=== PATIENT | male | born 1960 | race Caucasian/White ===

== ENCOUNTER 2018-08-08 00:15 | Inpatient (IN) | payer OTHER ==
[2018-08-08] VITALS (7 sets, daily range): BP systolic 99–150; BP diastolic 61–95
[~2018-08-08] VITALS: Ht 180.3 cm; Wt 88.0 kg
[2018-08-08] MEDS ORDERED: METFORMIN HCL500 MG PO (00:23)
[2018-08-08] MEDS ORDERED: ONGLYZA2.5 MG PO (00:24)
[2018-08-08] MEDS ORDERED: LIPITOR 10 MG10 M1 PO (00:25)
[2018-08-08 00:41] LABS: ABSOLUTE BASOPHILS 0.1 thou/uL (0.0-0.2); ABSOLUTE EOSINOPHILS 0.3 thou/uL (0.0-0.7); ABSOLUTE MONOCYTES 0.5 thou/uL (0.0-1.2); ABSOLUTE NEUTROPHILS 2.3 thou/uL (1.6-8.1); BASOPHILS 1.2 %; EOSINOPHILS 5.8 %; HEMATOCRIT 41.9 % (42.0-52.0); HEMOGLOBIN 13.8 gm/dL (14.0-18.0); LYMPHOCYTES 38.7 %; MCH 27.3 pg (26.0-34.0); MCHC 32.8 g/dL (28.0-37.0); MCV 83.1 fL (80.0-100.0); MPV 8.3 fl. (7.2-11.1); NUCLEATED RBCS 0 /100WBC; PLATELET COUNT* 183 thou/uL (150-400); POLYS 44.3 %; RBC 5.04 mil/uL (4.50-6.00); RDW-CV 16.1 % (10.5-14.5); WBC 5.2 thou/uL (4.0-11.0)
[2018-08-08 00:45] LABS: ANION GAP 5 mmol/L (7-16); BUN 16 mg/dL (7-18); CALCIUM 9.1 mg/dL (8.5-10.1); CHLORIDE 102 mmol/L (98-107); CO2 30 mmol/L (21-32); CREATININE 1.1 mg/dL (0.6-1.3); GLUCOSE 206 mg/dL (70-99); SODIUM 137 mmol/L (136-145)
[2018-08-08 00:52] LABS: APTT 25.6 Seconds (25.0-31.3); INR 0.9; PROTIME 9.7 Seconds (9.20-11.50)
[2018-08-08 00:56] LABS: ALBUMIN 3.6 g/dL (3.4-5.0); ALKALINE PHOSPHATASE 73 U/L (46-116); NT-PRO BRAIN NAT PEPTIDE 17 pg/mL (<300); SGOT 14 U/L (15-37); SGPT 32 U/L (30-65); TOTAL BILIRUBIN 0.2 mg/dL (<0.1-1.0); TROPONIN-I LEVEL <0.06 ng/mL (<0.06)
[2018-08-08] MEDS ORDERED: ASPIR 8181 MG PO (03:40)
--- NOTE | 2018-08-08 13:30 | 2DMMODE ---
[place] [address] 2 D/M-MODE ECHOCARDIOGRAM Name: RICH MON Room: [address] IN [facility]#: [id number] Admission: 08/08/18 Attend Phys: Stanley Soni Discharge: Date of : 60 Date of Service: 08/08/18 1330 Report #: [id number] THIS REPORT FOR: //name// APPROVED REPORT Study performed: 08/08/2018 11:01:14 EXAM: Comprehensive 2D, Doppler, and color-flow Echocardiogram Patient Location: In-Patient Room #: [facility] BSA: 2.08 HR: 77 bpm BP: 113/64 mmHg Other Information Study Quality: Good Indications Atrial Fibrillation 2D Dimensions IVSd: 11.40 (7-11mm) LVOT Diam: 20.51 (18-24mm) LVDd: 49.18 mm PWd: 7.86 (7-11mm) Ascending Ao: 28.73 (22-36mm) LVDs: 27.77 (25-40mm) Aortic Root: 29.12 mm Volumes Left Atrial Volume (Systole) LA ESV Index: 16.50 mL/m2 Aortic Valve AoV Peak Duc.: 1.11 m/s AO Peak Gr.: 4.95 mmHg LVOT Max P.26 mmHg AO Mean Gr.: 2.58 mmHg LVOT Mean P.07 mmHg LVOT Max V: 0.75 m/s AO V2 VTI: 18.75 cm LVOT Mean V: 0.47 m/s LOPEZ (VTI): 2.92 cm2 LVOT V1 VTI: 16.56 cm Mitral Valve E/A Ratio: 0.91 MV Decel. Time: 192.69 ms MV E Max Duc.: 0.71 m/s MV PHT: 55.88 [place] [address] 2 D/M-MODE ECHOCARDIOGRAM Name: RICH MON Room: [address] IN .R.#: [id number] Admission: 08/08/18 Attend Phys: Stanley Soni Discharge: Date of : 60 Date of Service: 08/08/18 1330 Report #: [id number] MVA (PHT): 3.94 cm2 TDI E/Lateral E': 5.92 E/Medial E': 6.45 Medial E' Duc.: 0.11 m/s Lateral E' Duc.: 0.12 m/s Pulmonary Valve PV Peak Duc.: 1.12 m/s PV Peak Gr.: 5.06 mmHg Tricuspid Valve RAP Estimate: 5.00 mmHg TR Peak Gr.: 13.87 mmHg RVSP: 18.87 mmHg PA Pressure: 18.87 mmHg Left Ventricle The left ventricle is normal size. There is normal LV segmental wall motion. There is normal left ventricular wall thickness. Left ventricular systolic function is normal. The left ventricular ejection fraction is within the normal range. LVEF is 55-60%. The left ventricular diastolic function is normal. Right Ventricle The right ventricle is normal size. The right ventricular systolic function is normal. Atria The left atrium size is normal. The right atrium size is normal. Aortic Valve The aortic valve is normal in structure. No aortic regurgitation is present. There is no aortic valvular stenosis. Mitral Valve The mitral valve is normal in structure. Trace mitral regurgitation. No evidence of mitral valve stenosis. Tricuspid Valve The tricuspid valve is normal in structure. Mild tricuspid regurgitation. Pulmonic Valve The pulmonary valve is normal in structure. There is no pulmonic [place] [address] 2 D/M-MODE ECHOCARDIOGRAM Name: RICH MON Room: [address] IN [facility]#: [id number] Admission: 08/08/18 Attend Phys: Stanley Soni Discharge: Date of : 60 Date of Service: 08/08/18 1330 Report #: [id number] Great Vessels The aortic root is normal in size. IVC is normal in size and collapses >50% with inspiration. Pericardium There is no pericardial effusion. <Conclusion> Left ventricular systolic function is normal. The left ventricular ejection fraction is within the normal range. <ELECTRONICALLY SIGNED> By: Alvin Rey MD, FACC 08/08/18 1330 29 29 Alvin Rey MD, FACC /INF
--- NOTE | 2018-08-08 16:22 | EKG ---
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 : 1960 Requested By: Isa Olivera Order Number: [id number] Tracey MD: Alvin Rey Measurements Intervals [place] Rate: 138 P: MA: QRS: 14 QRSD: 109 T: -38 QT: 334 QTc: 506 Interpretive Statements Atrial fibrillation Borderline low voltage, extremity leads Borderline prolonged QT interval Baseline wander in lead(s) V2 No previous ECG available for comparison Electronically Signed On 08-08-2018 16:22:12 PHYSICAL TRAINER by Alvin Rey [email or web address] <ELECTRONICALLY SIGNED> By: Alvin Rey MD, [facility] 08/08/18 1622 0024 0024 Alvin Rey MD, [facility] /EPI
[2018-08-08 23:10] LABS: GLYCOHEMOGLOBIN (HGB A1C) 8.8 % (4.8-5.6)
[2018-08-09] VITALS: BP 90/55
[2018-08-09 04:00] VITALS: BP 107/58
[2018-08-09 08:00] VITALS: BP 122/64
[2018-08-09] MEDS ORDERED: XARELTO20 MG PO (11:27)
[2018-08-09] MEDS ORDERED: CARVEDILOL3.125 MG PO (11:28)
[2018-08-09] MEDS ORDERED: FLECAINIDE ACET50 M1 PO (11:28)
[2018-08-09 12:00] VITALS: BP 131/79
[2018-08-09 12:44] VITALS: BP 122/64
--- NOTE | 2018-08-09 14:33 | EKG ---
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: : 1960 Requested By: Alvin Rey Order Number: [id number] Tracey MD: Tulio Douglas Measurements Intervals [place] Rate: 69 P: 39 HI: 139 QRS: 4 QRSD: 98 T: -12 QT: 421 QTc: 451 Interpretive Statements Sinus rhythm Borderline T abnormalities, inferior leads Compared to ECG 08/08/2018 00:24:28 T-wave abnormality now present Atrial fibrillation no longer present Electronically Signed On 08-09-2018 14:33:24 RADIOLOGICAL EQUIPMENT SPECIALIST by Tulio Douglas [email or web address] <ELECTRONICALLY SIGNED> By: Tulio Douglas MD, FACC 08/09/18 1433 0758 [id number] Tulio Douglas MD, [facility]IN [facility] /EPI
--- NOTE | 2018-08-09 15:03 | CON ---
[address] [address] CONSULTATION Name: RICH MON Room: [address] IN M.R.#: [id number] Admission: 08/08/18 Attend Phys: Ileana Lange Discharge: 08/09/18 Date of : 60 Report #: [id number] THIS REPORT FOR: //name// CC: JOVANY physician/PCP Stanley Soni DATE OF SERVICE: 08/08/2018 CARDIOLOGY CONSULTATION HISTORY OF PRESENT ILLNESS: The patient is a 57-year-old male who I was asked to see in the hospital today after he had an episode of atrial fibrillation. The patient has no previous history of heart disease. He stays fairly active. Last few days, he has been feeling well. He is currently getting ready to have his knee replaced in 2 weeks. He states he was doing well until last night. He was at home when he felt his heart beating irregular, felt some burning in his throat and felt a little lightheaded. He did notice some shortness of breath. His brought him by car to the Emergency Room last night. He was noted to be in atrial fibrillation. He was started on IV diltiazem. He converted to sinus rhythm. I was asked to see him for further evaluation and treatment. He denies any exertional dyspnea, dyspnea on exertion, edema or syncope. He has had no history of heart murmur. PAST MEDICAL HISTORY: He has had previous knee surgery. He has had wisdom tooth surgery. He has a history of diabetes and hyperlipidemia. MEDICATIONS: Include metformin, Lipitor and aspirin. ALLERGIES: HE HAS AN ALLERGY TO SULFA DRUGS. FAMILY HISTORY: Both his father and mother has had pacemaker. SOCIAL HISTORY: He is . He and his live here in [place]. He is originally from the [facility]. He is part [place] heritage. He receives his health care at [facility] in [place], [place]. 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 No smoking or alcohol abuse. REVIEW OF SYSTEMS: He has had no history of stroke, asthma, peptic ulcer disease, liver disease, kidney disease, cancer, psychiatric illness or chronic skin condition. PHYSICAL EXAMINATION: GENERAL: Revealed a middle-aged male, who appeared in no distress. VITAL SIGNS: He had a blood pressure 130/60. Pulse initially was 150; it is now 80 and irregular. Respirations nonlabored. [place] [address] CONSULTATION Name: RICH MON Room: [address]#: [id number] Admission: 08/08/18 Attend Phys: Ileana Lange Discharge: 08/09/18 Date of : 60 Report #: [id number] HEENT: He is anicteric. Conjunctivae pink. Mucous membranes moist. NECK: Neck veins do not appear distended. No carotid bruits. Neck supple. CHEST: Clear to auscultation. CARDIAC EXAMINATION: Regular rate and rhythm. ABDOMEN: Soft, nontender. EXTREMITIES: He had no edema. Posterior tibial pulses 2+ bilaterally. SKIN: Warm and dry. NEUROLOGICAL EXAMINATION: Nonfocal. PSYCHIATRIC EXAMINATION: Mood is appropriate. RADIOLOGICAL DATA: His ECG on admission showed atrial fibrillation with a rapid ventricular response rate, nonspecific ST and T-wave changes. Workup in the Emergency Room last night, he had a chest x-ray that showed normal heart size and clear lung wyman. LABORATORY DATA: Lab work last night, sodium 137, creatinine 1.1, glucose is 206. Liver function studies were normal. Troponin 0.06. White blood cell count 5.2, hemoglobin 13.8. IMPRESSION AND RECOMMENDATIONS: 1. Paroxysmal atrial fibrillation. I would check thyroid function studies and echocardiogram. The patient converted to sinus rhythm on diltiazem. At this time, I would recommend antiarrhythmic therapy. The patient has a RAND score of 1 and I would consider anticoagulation. 2. Diabetes. 3. Hyperlipidemia. The patient is on a statin drug. <ELECTRONICALLY SIGNED> By: Alvin Rey MD, FACC 08/09/18 1503 0905 [id number] Rey MD, FACC /nt
== END 2018-08-09 14:00 | disposition home or self-care (01) | DRG 309 ==
LOC: M.ERS 00:15 → M.2W 01:11 → M.TBA-ER 01:11 → M.2W 03:04
PROVIDERS: Personal Emergency Response Attendant; ADMIT Internal Medicine
DX: I48.0 Paroxysmal atrial fibrillation (principal); D68.69 Other thrombophilia; E11.9 Type 2 diabetes mellitus without complications; E78.5 Hyperlipidemia, unspecified; M19.90 Unspecified osteoarthritis, unspecified site; Z96.652 Presence of left artificial knee joint; Z79.01 Long term (current) use of anticoagulants; Z88.2 Allergy status to sulfonamides; Z79.82 Long term (current) use of aspirin; Z28.82 Immunization not carried out because of caregiver refusal; Z79.899 Other long term (current) drug therapy; Z82.49 Family history of ischemic heart disease and other diseases of the circulatory system; Z83.3 Family history of diabetes mellitus